=== PATIENT | male | born 1945 | race Caucasian/White ===

== ENCOUNTER → 2024-09-11 06:59 | Outpatient (REF) | payer MEDICARE, OTHER, SELFPAY | LOC: MRI 06:59 | PROVIDERS: ATTENDING PHYSICIAN Orthopaedic Surgery; FAMILY PHYSICIAN Internal Medicine | DX: M54.50 Low back pain, unspecified (principal); M43.16 Spondylolisthesis, lumbar region | CPT/HCPCS: 72148 ==

== ENCOUNTER → 2025-03-04 07:59 | Outpatient (REF) | payer MEDICARE, OTHER, SELFPAY | LOC: HWRCS 07:59 | PROVIDERS: ATTENDING PHYSICIAN Internal Medicine Cardiovascular Disease; FAMILY PHYSICIAN Internal Medicine | DX: R00.2 Palpitations (principal) | CPT/HCPCS: 93306 ==

== ENCOUNTER → 2025-08-05 11:28 | Outpatient (REF) | payer MEDICARE, OTHER, SELFPAY | LOC: RAD 11:28 | PROVIDERS: ATTENDING PHYSICIAN Student in an Organized Health Care Education/Training Program; FAMILY PHYSICIAN Internal Medicine | DX: R13.10 Dysphagia, unspecified (principal) | CPT/HCPCS: 70491; Q9967 ==